=== PATIENT | male | born 2000 | race African-American/Black ===

== ENCOUNTER 2018-09-23 18:38 | Emergency (ER) | payer SELFPAY ==
[~2018-09-23] VITALS: Ht 170.2 cm; Wt 72.0 kg
[2018-09-23] MEDS ORDERED: IV RINGERS SOLUTION,LACTATED 1,000 ML IV SCH (19:11)
--- NOTE | 2018-09-23 19:11 | ED.ADGEN ---
Past History Past Medical History: No Pertinent History Past Surgical History: No Surgical History Smoking: Cigarettes Alcohol Use: None Drug Use: Marijuana Adult General Chief Complaint Chief Complaint "About two days ago... all sudden got this pain in my Lt groin.. and now a bump.. it has not gone away..." [facility] HPI Patient is a 18 year old male who presents with development of Lt groin pain and mass. Patient has findings of left lower groin and upper scrotal adenopathy. No history of discharge. No history of dysuria. No history of STDs. No history of breast TD. No history immunosuppression. Mass does not appear to be a hernia. Patient denies any history of lymphoma or sarcoid. There is family history of breast cancer. Has had some history of subjective fevers at night. No recent travel. Has been normally healthy. Patient does smoke. Review of Systems Review of Systems Constitutional: Some history of intermittent fevers at night Eyes: Denies change in visual acuity, redness, or eye pain [] HENT: Denies nasal congestion or sore throat [] Respiratory: Denies cough or shortness of breath [] Cardiovascular: No additional information not addressed in HPI []has had some episodes of tachycardia. GI: Denies abdominal pain, nausea, vomiting, bloody stools or diarrhea [] complains of left lower abdomen and upper scrotal mass : Denies dysuria or hematuria [] Musculoskeletal: Denies back pain or joint pain [] Integument: Denies rash or skin lesions [] Neurologic: Denies headache, focal weakness or sensory changes [] Endocrine: Denies polyuria or polydipsia [] All other systems were reviewed and found to be within normal limits, except as documented in this note. Family History Family History Mother has breast cancer Current Medications Current Medications Current Medications Medications (Trade) Dose Ordered Sig/Arianna Start Time Stop Time Status Last Admin Dose Admin Ceftriaxone Sodium 1 gm/ Sodium Chloride 50 ml @ 100 mls/hr 1X ONCE 09/23/18 22:30 09/23/18 23:00 DC 09/23/18 23:01 100 MLS/HR Ceftriaxone Sodium (Rocephin) 1 gm STK-MED ONCE 09/23/18 22:43 09/23/18 22:44 DC Famotidine (Pepcid Vial) 20 mg 1X ONCE 09/23/18 19:30 09/23/18 19:31 DC 09/23/18 19:54 20 MG Iohexol (Omnipaque 240 Mg/ml) 30 ml 1X ONCE 09/23/18 19:45 09/23/18 19:46 DC 09/23/18 21:04 30 ML Iohexol (Omnipaque 300 Mg/ml) 75 ml 1X ONCE 09/23/18 19:45 09/23/18 19:46 DC 09/23/18 21:04 75 ML Lactated Ringer's 1,000 ml @ 1,000 mls/hr Q1H 09/23/18 19:11 09/23/18 20:10 DC 09/23/18 19:50 1,000 MLS/HR Morphine Sulfate (Morphine 10mg Syringe) 10 mg 1X ONCE 09/23/18 19:30 09/23/18 19:31 DC 09/23/18 19:51 10 MG Ondansetron HCl (Zofran) 8 mg 1X ONCE 09/23/18 19:30 09/23/18 19:31 DC 09/23/18 19:50 8 MG Sodium Chloride 50 ml @ As Directed STK-MED ONCE 09/23/18 22:43 09/23/18 22:44 DC Allergies Allergies Allergies Coded Allergies Type Severity Reaction Last Updated Verified No Known Drug Allergies 08/28/15 No Physical Exam Physical Exam Constitutional: Well developed, well nourished, moderately acute distress, non- toxic appearance. [] HENT: Normocephalic, atraumatic, bilateral external ears normal, oropharynx moist, no oral exudates, nose normal. [] Eyes: PERRLA, EOMI, conjunctiva normal, no discharge. [] Neck: Normal range of motion, no tenderness, supple, no stridor. [] Cardiovascular:Heart rate regular rhythm, no murmur [] Lungs & Thorax: Bilateral breath sounds equal with scattered wheezes auscultation [] Abdomen: Bowel sounds normal, soft, no tenderness, no masses, no pulsatile masses. [] Skin: Warm, dry, no erythema, no rash. [] Back: No tenderness, no CVA tenderness. [] Extremities: No tenderness, no cyanosis, no clubbing, ROM intact, no edema. [] Neurologic: Alert and oriented X 3, normal motor function, normal sensory function, no focal deficits noted. [] Psychologic: Affect normal, judgement normal, mood normal. [] Current Patient Data Vital Signs Vital Signs Date Time Temp Pulse Resp B/P (MAP) Pulse Ox O2 Delivery O2 Flow Rate FiO2 09/23/18 23:02 73 18 122/63 (82) 96 Room Air 09/23/18 18:49 98.2 Lab Results Laboratory Tests Test 09/23/18 19:43 09/23/18 20:30 White Blood Count 8.8 x10^3/uL (4.0-11.0) Red Blood Count 4.53 x10^6/uL (4.30-5.70) Hemoglobin 13.7 g/dL (13.0-17.5) Hematocrit 41.3 % (39.0-53.0) Mean Corpuscular Volume 91 fL (79-100) Mean Corpuscular Hemoglobin 30 pg (25-35) Mean Corpuscular Hemoglobin Concent 33 g/dL (31-37) Red Cell Distribution Width 14.4 % (11.5-14.5) Platelet Count 269 x10^3/uL (140-400) Neutrophils (%) (Auto) 66 % (31-73) Lymphocytes (%) (Auto) 23 % (24-48) L Monocytes (%) (Auto) 10 % (0-9) H Eosinophils (%) (Auto) 1 % (0-3) Basophils (%) (Auto) 0 % (0-3) Neutrophils # (Auto) 5.8 x10^3uL (1.8-7.7) Lymphocytes # (Auto) 2.0 x10^3/uL (1.0-4.8) Monocytes # (Auto) 0.8 x10^3/uL (0.0-1.1) Eosinophils # (Auto) 0.1 x10^3/uL (0.0-0.7) Basophils # (Auto) 0.0 x10^3/uL (0.0-0.2) Sodium Level 136 mmol/L (136-145) Potassium Level 3.7 mmol/L (3.5-5.1) Chloride Level 102 mmol/L (98-107) Carbon Dioxide Level 23 mmol/L (21-32) Anion Gap 11 (6-14) Blood Urea Nitrogen 7 mg/dL (8-26) L Creatinine 0.7 mg/dL (0.7-1.3) Estimated GFR (Cockcroft-Gault) 174.0 Glucose Level 93 mg/dL (70-99) Calcium Level 8.8 mg/dL (8.5-10.1) Total Bilirubin 0.5 mg/dL (0.2-1.0) Direct Bilirubin 0.1 mg/dL (0.0-0.2) Aspartate Amino Transferase (AST) 23 U/L (15-37) Alanine Aminotransferase (ALT) 19 U/L (16-63) Alkaline Phosphatase 91 U/L (46-116) Total Protein 8.1 g/dL (6.4-8.2) Albumin 3.9 g/dL (3.4-5.0) Lipase 82 U/L (73-393) Urine Collection Type Unknown Urine Color Yellow Urine Clarity Hazy Urine pH 8.0 Urine Specific [place] 1.020 Urine Protein Neg (NEG-TRACE) Urine Glucose (UA) Neg mg/dL (NEG) Urine Ketones (Stick) Neg mg/dL (NEG) Urine Blood Neg (NEG) Urine Nitrite Neg (NEG) Urine Bilirubin Neg (NEG) Urine Urobilinogen Dipstick 0.2 mg/dL (0.2 mg/dL) Urine Leukocyte Esterase Neg (NEG) Urine RBC 0 /HPF (0-2) Urine WBC 1-4 /HPF (0-4) Urine Squamous Epithelial Cells None /LPF Urine Bacteria 0 /HPF (0-FEW) Urine Opiates Screen Pos (NEG) Urine Methadone Screen Neg (NEG) Urine Barbiturates Neg (NEG) Urine Phencyclidine Screen Neg (NEG) Urine Amphetamine/Methamphetamine Neg (NEG) Urine Benzodiazepines Screen Neg (NEG) Urine Cocaine Screen Neg (NEG) Urine Cannabinoids Screen Pos (NEG) Urine Ethyl Alcohol Neg (NEG) EKG EKG My interpretation EKG shows a sinus rhythm at 69 bpm. There is some leftward axis. But no findings acute STEMI with contralateral changes.[] Radiology/Procedures Radiology/Procedures My interpretation of acute abdomen shows no acute cardio pulmonary findings. No free air in the diaphragm. There is nonicteric back gas pattern. There is stool in colon. CT of abdomen shows findings of adenopathy and left lower groin. One lymph node is the size of 1.5 cm. There are some findings of periportal liver edema. See formal report when available[] Course & Med Decision Making Course & Med Decision Making Pertinent Labs and Imaging studies reviewed. (See chart for details) Patient follow-up pending cultures. We'll treat as reactive or infectious adenopathy- Antibiotics before discharge and doxycycline twice a day at home. Patient to follow-up primary care. If adenopathy is not resolved must have biopsy of site. Rule out other etiologies such as sarcoid, lymphoma, Hodgkin's, etc. Take Tylenol or ibuprofen for pain. Use ice packs as needed. Return if any concerns. [] Final Impression Final Impression 1. Groin Pain[] 2. Adenopathy left groin- largest node is 1.5 cm 3. Marijuana and Tobacco use 4. Possible Periportal Edema. Dragon Disclaimer Dragon Disclaimer This electronic medical record was generated, in whole or in part, using a voice recognition dictation system. DragFeedlooks Disclaimer This chart was dictated in whole or in part using Voice Recognition software in a busy, high-work load, and often noisy Emergency Department environment. It may contain unintended and wholly unrecognized errors or omissions. Discharge Summary Visit Information Final Diagnosis Problems Medical Problems: (1) Adenopathy Status: Acute Brief Hospital Course Allergies Allergies Coded Allergies Type Severity Reaction Last Updated Verified No Known Drug Allergies 08/28/15 No Vital Signs Vital Signs Date Time Temp Pulse Resp B/P (MAP) Pulse Ox O2 Delivery O2 Flow Rate FiO2 09/23/18 23:02 73 18 122/63 (82) 96 Room Air 09/23/18 18:49 98.2 Lab Results Laboratory Tests Test 09/23/18 19:43 09/23/18 20:30 White Blood Count 8.8 x10^3/uL (4.0-11.0) Red Blood Count 4.53 x10^6/uL (4.30-5.70) Hemoglobin 13.7 g/dL (13.0-17.5) Hematocrit 41.3 % (39.0-53.0) Mean Corpuscular Volume 91 fL (79-100) Mean Corpuscular Hemoglobin 30 pg (25-35) Mean Corpuscular Hemoglobin Concent 33 g/dL (31-37) Red Cell Distribution Width 14.4 % (11.5-14.5) Platelet Count 269 x10^3/uL (140-400) Neutrophils (%) (Auto) 66 % (31-73) Lymphocytes (%) (Auto) 23 % (24-48) Monocytes (%) (Auto) 10 % (0-9) Eosinophils (%) (Auto) 1 % (0-3) Basophils (%) (Auto) 0 % (0-3) Neutrophils # (Auto) 5.8 x10^3uL (1.8-7.7) Lymphocytes # (Auto) 2.0 x10^3/uL (1.0-4.8) Monocytes # (Auto) 0.8 x10^3/uL (0.0-1.1) Eosinophils # (Auto) 0.1 x10^3/uL (0.0-0.7) Basophils # (Auto) 0.0 x10^3/uL (0.0-0.2) Sodium Level 136 mmol/L (136-145) Potassium Level 3.7 mmol/L (3.5-5.1) Chloride Level 102 mmol/L (98-107) Carbon Dioxide Level 23 mmol/L (21-32) Anion Gap 11 (6-14) Blood Urea Nitrogen 7 mg/dL (8-26) Creatinine 0.7 mg/dL (0.7-1.3) Estimated GFR (Cockcroft-Gault) 174.0 Glucose Level 93 mg/dL (70-99) Calcium Level 8.8 mg/dL (8.5-10.1) Total Bilirubin 0.5 mg/dL (0.2-1.0) Direct Bilirubin 0.1 mg/dL (0.0-0.2) Aspartate Amino Transf (AST/SGOT) 23 U/L (15-37) Alanine Aminotransferase (ALT/SGPT) 19 U/L (16-63) Alkaline Phosphatase 91 U/L (46-116) Total Protein 8.1 g/dL (6.4-8.2) Albumin 3.9 g/dL (3.4-5.0) Lipase 82 U/L (73-393) Urine Collection Type Unknown Urine Color Yellow Urine Clarity Hazy Urine pH 8.0 Urine Specific [place] 1.020 Urine Protein Neg (NEG-TRACE) Urine Glucose (UA) Neg mg/dL (NEG) Urine Ketones (Stick) Neg mg/dL (NEG) Urine Blood Neg (NEG) Urine Nitrite Neg (NEG) Urine Bilirubin Neg (NEG) Urine Urobilinogen Dipstick 0.2 mg/dL (0.2 mg/dL) Urine Leukocyte Esterase Neg (NEG) Urine RBC 0 /HPF (0-2) Urine WBC 1-4 /HPF (0-4) Urine Squamous Epithelial Cells None /LPF Urine Bacteria 0 /HPF (0-FEW) Urine Opiates Screen Pos (NEG) Urine Methadone Screen Neg (NEG) Urine Barbiturates Neg (NEG) Urine Phencyclidine Screen Neg (NEG) Urine Amphetamine/Methamphetamine Neg (NEG) Urine Benzodiazepines Screen Neg (NEG) Urine Cocaine Screen Neg (NEG) Urine Cannabinoids Screen Pos (NEG) Urine Ethyl Alcohol Neg (NEG) Brief Hospital Course Mr. Newell is a 18 old male who presented with Lt groin adenopathy. Discharge Information Condition at Discharge: Stable Disposition/Orders: D/C to Home Dischare Medications Current Medications Lactated Ringer's 1,000 ml @ 1,000 mls/hr Q1H IV Last administered on at 19:50; Admin Dose 1,000 MLS/HR; Start 09/23/18 at 19:11; Stop 09/23/18 at 20:10; Status DC Ondansetron HCl (Zofran) 8 mg 1X ONCE IV Last administered on 09/23/18at 19:50 ; Admin Dose 8 MG; Start 09/23/18 at 19:30; Stop 09/23/18 at 19:31; Status DC Famotidine (Pepcid Vial) 20 mg 1X ONCE IVP Last administered on 09/23/18at 19: 54; Admin Dose 20 MG; Start 09/23/18 at 19:30; Stop 09/23/18 at 19:31; Status DC Morphine Sulfate (Morphine 10mg Syringe) 10 mg 1X ONCE SQ Last administered on 09/23/18at 19:51; Admin Dose 10 MG; Start 09/23/18 at 19:30; Stop 09/23/18 at 19:31; Status DC Iohexol (Omnipaque 240 Mg/ml) 30 ml 1X ONCE PO Last administered on 09/23/18at 21:04; Admin Dose 30 ML; Start 09/23/18 at 19:45; Stop 09/23/18 at 19:46; Status DC Iohexol (Omnipaque 300 Mg/ml) 75 ml 1X ONCE IV Last administered on 09/23/18at 21:04; Admin Dose 75 ML; Start 09/23/18 at 19:45; Stop 09/23/18 at 19:46; Status DC Ceftriaxone Sodium 1 gm/ Sodium Chloride 50 ml @ 100 mls/hr 1X ONCE IV Last administered on 09/23/18at 23:01; Admin Dose 100 MLS/HR; Start 09/23/18 at 22:30 ; Stop 09/23/18 at 23:00; Status DC Sodium Chloride 50 ml @ As Directed STK-MED ONCE .ROUTE ; Start 09/23/18 at 22: 43; Stop 09/23/18 at 22:44; Status DC Ceftriaxone Sodium (Rocephin) 1 gm STK-MED ONCE .ROUTE ; Start 09/23/18 at 22:43 ; Stop 09/23/18 at 22:44; Status DC Active Scripts Active Doxycycline Hyclate 100 Mg Tablet 1 Tab PO BID Hydrocodone-Ibuprofen 7.5-200 (Hydrocodone/Ibuprofen) 1 Each Tablet 1 Tab PO PRN Q6HRS PRN CHADD MCKEON MD Sep 23, 2018 19:11
[2018-09-23] MEDS ORDERED: FAMOTIDINE 20 MG/2 ML VIAL IVP ONE (19:30)
[2018-09-23] MEDS ORDERED: ONDANSETRON PF 4 MG/2 ML VIAL. IV ONE (19:30)
[2018-09-23] MEDS ORDERED: MORPHINE SULFATE 10 MG/ML SYRINGE. SQ ONE (19:30)
[2018-09-23] MEDS ORDERED: IOHEXOL 240 MG/ML 50ML VIAL. PO ONE (19:45)
[2018-09-23] MEDS ORDERED: IOHEXOL 300 MG/ML 75 ML VIAL. IV ONE (19:45)
[2018-09-23 20:00] LABS: BASO % 0 % (0-3); EOS # 0.1 x10^3/uL (0.0-0.7); EOS % 1 % (0-3); HEMATOCRIT 41.3 % (39.0-53.0); HEMOGLOBIN 13.7 g/dL (13.0-17.5); LYMPH % 23 % (24-48); MEAN CORPUSCULAR HEMOGLOBIN 30 pg (25-35); MEAN CORPUSCULAR HGB CONC 33 g/dL (31-37); MEAN CORPUSCULAR VOLUME 91 fL (79-100); MONO # 0.8 x10^3/uL (0.0-1.1); MONO % 10 % (0-9); NEUT # 5.8 x10^3uL (1.8-7.7); NEUT % 66 % (31-73); PLATELET COUNT 269 x10^3/uL (140-400); RED BLOOD COUNT 4.53 x10^6/uL (4.30-5.70); RED CELL DISTRIBUTION WIDTH 14.4 % (11.5-14.5); WHITE BLOOD COUNT 8.8 x10^3/uL (4.0-11.0)
[2018-09-23 20:47] LABS: ALBUMIN 3.9 g/dL (3.4-5.0); CALCIUM 8.8 mg/dL (8.5-10.1); CREATININE 0.7 mg/dL (0.7-1.3); DIRECT BILIRUBIN 0.1 mg/dL (0.0-0.2); POTASSIUM 3.7 mmol/L (3.5-5.1); TOTAL BILIRUBIN 0.5 mg/dL (0.2-1.0); TOTAL PROTEIN 8.1 g/dL (6.4-8.2)
[2018-09-23 21:25] LABS: BARBITURATES NEG (NEG); BENZODIAZEPINES NEG (NEG); CANNABINOIDS POS (NEG); COCAINE NEG (NEG); METHADONE NEG (NEG); OPIATES POS (NEG); PHENCYCLIDINE NEG (NEG)
[2018-09-23 21:26] LABS: AMPHETAMINE/METHAMPHETAMINE NEG (NEG)
[2018-09-23 21:34] LABS: BACTERIA,URINE 0 /HPF (0-FEW); BILIRUBIN,URINE NEG (NEG); CLARITY,URINE HAZY; COLOR,URINE YELLOW; GLUCOSE,URINE NEG (NEG); NITRITE,URINE NEG (NEG); RBC,URINE 0 /HPF (0-2); UROBILINOGEN,URINE 0.2 mg/dL (0.2 mg/dL)
--- NOTE | 2018-09-23 21:53 | RAD ---
CT study of the abdomen and pelvis with contrast Clinical indications: Lower abdominal pain. Mass in the groin region. Nausea for 2 days. TECHNIQUE: After IV infusion of 75 cc Omnipaque 300, helical CT scanning of abdomen and pelvis was performed. GI contrast was administered per mouth. PQRS compliance Statement One or more of the following individualized dose reduction techniques were utilized for this study: 1. Automated exposure control 2. Adjustment of the mA and/or kV according to patient size 3. Use of iterative reconstruction technique FINDINGS: There is periportal edema of the liver. No hepatic mass is seen. The spleen is not enlarged. Pancreas is normal. The gallbladder is normal. No extra hepatic biliary ductal dilatation is seen. No adrenal mass is evident. Both kidneys are normal without hydronephrosis or hydroureter. Urinary bladder wall is smooth. No focal aneurysmal dilatation of the abdominal aorta is seen. No enlarged abdominal lymphadenopathy is evident. There are enhancing left inguinal lymph nodes which may account for a left groin mass. The largest lymph node measures 1.5 cm in size. No inguinal hernia is evident. The appendix is normal. The terminal ileum is unremarkable. No obstructive bowel pattern is evident. No free air or free fluid or mesenteric edema is seen. No lung base consolidation is evident. No lytic process is evident. IMPRESSION: Periportal edema of the liver. This may be seen with hepatitis. Correlation with liver function tests is recommended. Enhancing mildly enlarged left inguinal lymph nodes which may account for a left groin mass. This is consistent with lymphadenopathy and may be reactive. Clinical follow-up is recommended with regard to any growth in size since early lymphoma has not been excluded. Electronically signed by: Sylvester Gonzalez MD (09/23/2018 9:50 PM) [facility]
[2018-09-23] MEDS ORDERED: HYDR-1179 PO (22:17)
[2018-09-23] MEDS ORDERED: DOXY100T PO (22:17)
[2018-09-23] MEDS ORDERED: cefTRIAXone SODIUM 1 GM VIAL ONE (22:43)
[2018-09-23] MEDS ORDERED: IV NORMAL SALINE 50ML 50 ML ONE (22:43)
[2018-09-23 23:02] VITALS: BP 122/63
--- NOTE | 2018-09-24 01:26 | RAD ---
Indication:Lower abdominal pain, groin region, nausea x 2 days TECHNIQUE:Acute abdominal series COMPARISON: None FINDINGS: Heart is normal in size. Lungs are clear. No pneumothorax or effusion. No pneumoperitoneum. No abnormally dilated bowel loops or air-fluid levels. No abnormal calcific densities projecting over the kidneys to suggest apparent renal stones. Visualized bones are within normal limits. IMPRESSION: No acute radiographic findings. Electronically signed by: Chacorta Baca DO (09/24/2018 1:23 AM) [facility]
--- NOTE | 2018-09-25 22:26 | EKG ---
[address] [address] Test Date: 2018-09-23 Test Time: 19:23:12 Pat Name: MAGDALENA THAPA Department: Room: Gender: M [employer]: СВЕТЛАНА : 2000 Requested By: CHADD MCKEON Order Number: [id number] Reading MD: Giovany Coreas MD Measurements Intervals [place] Rate: 69 P: 22 AL: 156 QRS: -15 QRSD: 78 T: 10 QT: 360 QTc: 387 Interpretive Statements SINUS RHYTHM Electronically Signed On 10-01-2018 9:49:37 CDT by Giovany Coreas MD
[2018-09-28 20:07] LABS: ANA INTERP Negative (.)
== END 2018-09-23 23:20 | disposition home or self-care (01) ==
LOC: ER 18:38
DX: R59.0 Localized enlarged lymph nodes (principal); R10.32 Left lower quadrant pain; F17.210 Nicotine dependence, cigarettes, uncomplicated; F12.10 Cannabis abuse, uncomplicated
CPT/HCPCS: 36415; 74022; 74177; 80048; 80076; 80307; 81001; 82164; 83690; 85025; 85651; 86038; 86592; 86703; 87491; 87591; 93005; 96365; 96372; 96375; 99284; J0696; J2270; J2405; J3490; J7120; Q9966; Q9967

== ENCOUNTER 2019-07-10 01:07 | Emergency (ER) | payer SELFPAY ==
[~2019-07-10] VITALS: Ht 175.3 cm; Wt 69.9 kg
[~2019-07-10 01:07] MED LIST: DOXY100T PO; HYDR-1179 PO
[2019-07-10 01:25] VITALS: BP 123/75
[2019-07-10] MEDS ORDERED: PHENAZOPYRIDINE 200 MG TABLET. PO ONE (01:45)
--- NOTE | 2019-07-10 01:47 | PHYS DOC ---
Past History Past Medical History: Asthma Past Surgical History: No Surgical History Smoking: Cigarettes Alcohol Use: None Drug Use: Marijuana Adult General Chief Complaint Chief Complaint: BLOOD IN URINE HPI HPI 19-year-old male presents with hematuria and penile discharge. He has had pain now discharge on-and-off again weeks. Today, the patient began to have [place] blood with urination. He is sexually active. He denies any trauma. No history of urinary tract infections. The patient has also had some intermittent lower abdominal pain. It is mild in intensity. Review of Systems Review of Systems Constitutional: Denies fever or chills [] Eyes: Denies change in visual acuity, redness, or eye pain [] HENT: Denies nasal congestion or sore throat [] Respiratory: Denies cough or shortness of breath [] Cardiovascular: No additional information not addressed in HPI [] GI: Denies abdominal pain, nausea, vomiting, bloody stools or diarrhea [] : Dysuria and hematuria, penile discharge[] Musculoskeletal: Denies back pain or joint pain [] Integument: Denies rash or skin lesions [] Neurologic: Denies headache, focal weakness or sensory changes [] Endocrine: Denies polyuria or polydipsia [] All other systems were reviewed and found to be within normal limits, except as documented in this note. Allergies Allergies Allergies Coded Allergies Type Severity Reaction Last Updated Verified No Known Drug Allergies 08/28/15 No Physical Exam Physical Exam Constitutional: Well developed, well nourished, no acute distress, non-toxic appearance. [] HENT: Normocephalic, atraumatic, bilateral external ears normal, oropharynx moist, no oral exudates, nose normal. [] Eyes: PERRLA, EOMI, conjunctiva normal, no discharge. [] Neck: Normal range of motion, no tenderness, supple, no stridor. [] Cardiovascular:Heart rate regular rhythm, no murmur [] Lungs & Thorax: Bilateral breath sounds clear to auscultation [] Abdomen: Bowel sounds normal, soft, mild suprapubic tenderness, no masses, no pulsatile masses. [] Skin: Warm, dry, no erythema, no rash. [] Back: No tenderness, no CVA tenderness. [] Extremities: No tenderness, no cyanosis, no clubbing, ROM intact, no edema. [] Neurologic: Alert and oriented X 3, normal motor function, normal sensory function, no focal deficits noted. [] Psychologic: Affect normal, judgement normal, mood normal. [] Current Patient Data Vital Signs Vital Signs Date Time Temp Pulse Resp B/P (MAP) Pulse Ox O2 Delivery O2 Flow Rate FiO2 07/10/19 01:25 97.3 64 18 99 Room Air EKG EKG [] Radiology/Procedures Radiology/Procedures [] Course & Med Decision Making Course & Med Decision Making Pertinent Labs and Imaging studies reviewed. (See chart for details) The patient's urinalysis is significant for urinary tract infection. Given the patient's discharge, I'm also concern for sexual transmitted infection. I will treat the patient with a gram of Rocephin IM as well as a gram of azithromycin. I will send him home with 5 more days of Macrobid. He is also been told not to have sexual intercourse until his results come back from his chlamydia test. He is stable for discharge at this time. [] Dragon Disclaimer Dragon Disclaimer This electronic medical record was generated, in whole or in part, using a voice recognition dictation system. Departure Departure: Impression: Primary Impression: UTI (urinary tract infection) Additional Impression: Concern about STD in male without diagnosis Disposition: 01 HOME, SELF-CARE Condition: STABLE Referrals: PCP,NO (PCP) Patient Instructions: Sexually Transmitted Disease, [id number], Urinary Tract Infection, [id number] Scripts Nitrofurantoin Monohyd/M-Cryst (MACROBID 100 MG CAPSULE) 100 Mg Capsule 1 CAP PO BID for UTI for 7 Days, #14 CAP 0 Refills Prov: ED PALAFOX DO 07/10/19 Problem Qualifiers Primary Impression: UTI (urinary tract infection) Urinary tract infection type: acute cystitis Hematuria presence: with hematuria Qualified Codes: N30.01 - Acute cystitis with hematuria ED PALAFOX DO Jul 10, 2019 01:47
[2019-07-10 02:04] LABS: BILIRUBIN,URINE NEG (NEG); CLARITY,URINE CLOUDY; COLOR,URINE YELLOW; GLUCOSE,URINE NEG (NEG); NITRITE,URINE NEG (NEG); RBC,URINE 20-40 /HPF (0-2)
[2019-07-10 02:05] LABS: AMORPHOUS SEDIMENT,UR PRESENT /HPF; BACTERIA,URINE MOD /HPF (0-FEW); SQUAMOUS EPITHELIAL CELL,UR FEW /LPF
[2019-07-10] MEDS ORDERED: cefTRIAXone SODIUM 1 GM VIAL ONE (02:21)
[2019-07-10] MEDS ORDERED: NITR100C62 PO (02:23)
[2019-07-10] MEDS ORDERED: cefTRIAXone IM 1 GM VIAL IM ONE (02:30)
[2019-07-10] MEDS ORDERED: AZITHROMYCIN 250 MG TABLET. PO ONE (02:30)
== END 2019-07-10 02:45 | disposition home or self-care (01) ==
LOC: ER 01:07
DX: N30.01 Acute cystitis with hematuria (principal); Z20.2 Contact with and (suspected) exposure to infections with a predominantly sexual mode of transmission; J45.909 Unspecified asthma, uncomplicated; F17.210 Nicotine dependence, cigarettes, uncomplicated
CPT/HCPCS: 36415; 81001; 87086; 87491; 87591; 96372; 99284; J0456; J0696